=== PATIENT | female | born 1995 | race American Indian/Alaskan Native ===

== ENCOUNTER 2016-08-30 09:10 | Emergency (ER) | payer OTHER ==
[2016-08-30 10:19] LABS: Bilirubin,Urine NEG (Negative); Blood,Urine NEG (Negative); Ketones,Urine NEG (Negative); Leukocyte Esterase,Urine LG (Negative); Mucus,Urine FEW /HPF; Nitrite,Urine NEG (Negative); Protein,Urine <15 mg/dL mg/dL (Negative); Urobilinogen,Urine < 2.0 mg/dL (<2.0)
[2016-08-30 10:29] LABS: Basophils % (Auto) 0.8 % (0.0-1.8); Eosinophils % (Auto) 1.8 % (0.0-4.3); Hematocrit 40.1 % (30.3-42.9); Mean Corpuscular HGB Conc 32 % (30-34); Mean Corpuscular Hemoglobin 30 pg (28-32); Mean Corpuscular Volume 91 fl (79-97); Platelet Count 227 K/mm3 (140-440); Red Blood Count 4.39 M/mm3 (3.65-5.03); White Blood Count 4.8 K/mm3 (4.5-11.0)
[2016-08-30 10:48] LABS: Alanine Aminotransferase 9 units/L (7-56); Albumin 4.1 g/dL (3.9-5); Albumin/Globulin Ratio 1.4 %; Alkaline Phosphatase 90 units/L (35-129); Anion Gap 17 mmol/L; BUN/Creatinine Ratio 11.66; Bilirubin,Total 0.6 mg/dL (0.1-1.2); Blood Urea Nitrogen 7 mg/dL (7-17); Calcium 8.8 mg/dL (8.4-10.2); Carbon Dioxide 26 mmol/L (22-30); Chloride 100.7 mmol/L (98-107); Glucose 88 mg/dL (65-100); Lipase 28 units/L (13-60); Potassium 4.7 mmol/L (3.6-5.0); Sodium 139 mmol/L (137-145)
--- NOTE | 2016-08-30 14:28 | Emergency Department Report ---
ED Abdominal Pain HPI - General Chief Complaint: Abdominal Pain Stated Complaint: LOWER ABD PAIN/LT EYE REDNESS W/SWELLING Time Seen by Provider: 08/30/16 14:14 Source: patient Mode of arrival: Ambulatory Limitations: No Limitations - History of Present Illness Initial Comments: Pt reports lower abdominal pain x 5 days. Reports she vomited last night. No fevers. Reports discharge but just had pelvic exam last week for same, so declines today. Also reports possible pink eye, exposed to same. No contact use. MD Complaint: abdominal pain -: Gradual, days(s) (5) Location: suprapubic Radiation: none Migration to: no migration Severity: mild Quality: aching Consistency: constant Improves With: nothing Worsens With: nothing Associated Symptoms: nausea, vomiting - Related Data Previous Rx's Medication Instructions Recorded Last Taken Type Doxycycline [Vibramycin CAP] 100 mg PO Q12H #14 capsule 06/03/14 Unknown Rx HYDROcodone/APAP 5-325 [[place] 1 each PO Q6HR PRN #10 tablet 08/27/16 Unknown Rx 5-325 mg TAB] Ciprofloxacin HCl [Ciprofloxacin 500 mg PO Q12HR #10 tab 08/30/16 Unknown Rx TAB] Tobramycin 1 drop OS Q4-6H #1 bottle 08/30/16 Unknown Rx Allergies Allergy/AdvReac Type Severity Reaction Status Date / Time ketorolac tromethamine Allergy Unknown Verified 12/10/15 08:10 [From Toradol] Penicillins Allergy Unknown Verified 12/10/15 08:10 ED Review of Systems ROS: Stated complaint: LOWER ABD PAIN/LT EYE REDNESS W/SWELLING Other details as noted in HPI Comment: All other systems reviewed and negative Constitutional: denies: chills, fever Eyes: eye pain, eye discharge. denies: vision change ENT: denies: ear pain, throat pain Respiratory: denies: cough, shortness of breath, wheezing Cardiovascular: denies: chest pain, palpitations Endocrine: no symptoms reported Gastrointestinal: abdominal pain, nausea, vomiting. denies: diarrhea Genitourinary: denies: urgency, dysuria, discharge Musculoskeletal: denies: back pain, joint swelling, arthralgia Skin: denies: rash, lesions Neurological: denies: headache, weakness, paresthesias Psychiatric: denies: anxiety, depression Hematological/Lymphatic: denies: easy bleeding, easy bruising ED Past Medical Hx - Past Medical History Previous Medical History?: No - Surgical History Past Surgical History?: No - Social History Smoking Status: Never Smoker Substance Use Type: None - Medications Home Medications: Home Medications Medication Instructions Recorded Confirmed Last Taken Type Doxycycline [Vibramycin CAP] 100 mg PO Q12H #14 capsule 06/03/14 Unknown Rx HYDROcodone/APAP 5-325 [[place] 1 each PO Q6HR PRN #10 tablet 08/27/16 Unknown Rx 5-325 mg TAB] Ciprofloxacin HCl [Ciprofloxacin 500 mg PO Q12HR #10 tab 08/30/16 Unknown Rx TAB] Tobramycin 1 drop OS Q4-6H #1 bottle 08/30/16 Unknown Rx ED Physical Exam - General Limitations: No Limitations General appearance: alert, in no apparent distress - Head Head exam: Present: atraumatic, normocephalic - Eye Eye exam: Present: PERRL, EOMI, conjunctival injection (L). Absent: periorbital swelling, periorbital tenderness Pupils: Present: normal accommodation - ENT ENT exam: Present: normal orophraynx, mucous membranes moist - Neck Neck exam: Present: normal inspection - Respiratory Respiratory exam: Present: normal lung sounds bilaterally. Absent: respiratory distress - Cardiovascular Cardiovascular Exam: Present: regular rate, normal rhythm. Absent: systolic murmur, diastolic murmur, rubs, gallop - GI/Abdominal GI/Abdominal exam: Present: soft, tenderness (mild suprapubic only), normal bowel sounds. Absent: distended, guarding, rebound, rigid - Extremities Exam Extremities exam: Present: normal inspection - Back Exam Back exam: Present: normal inspection - Neurological Exam Neurological exam: Present: alert, oriented X3 - Psychiatric Psychiatric exam: Present: normal affect, normal mood - Skin Skin exam: Present: warm, dry, intact, normal color. Absent: rash ED Course Vital Signs 08/30/16 09:46 Temperature 98.8 F Pulse Rate 67 Respiratory 16 Rate Blood Pressure 121/80 O2 Sat by Pulse 100 Oximetry - Reevaluation(s) Reevaluation #1: 08/30/16 14:26 NAD, stable for d/c ED Medical Decision Making - Lab Data Result diagrams: 08/30/16 10:14 08/30/16 10:14 - Medical Decision Making Pt with UTI and conjunctivitis. Will treat. Follow up/return precautions given. Abdomen remains soft w/ mild suprapubic tenderness only. - Differential Diagnosis UTI, STI, conjunctivitis Critical care attestation.: If time is entered above; I have spent that time in minutes in the direct care of this critically ill patient, excluding procedure time. ED Disposition Clinical Impression: Acute UTI (urinary tract infection) Conjunctivitis, left eye Qualifiers: Conjunctivitis type: acute Acute conjunctivitis type: unspecified Qualified Code(s): H10.32 - Unspecified acute conjunctivitis, left eye Disposition: DISCHARGED TO HOME OR SELFCARE Is pt being admited?: No Condition: Good Instructions: Urinary Tract Infection in Women (ED), Conjunctivitis (ED), Abdominal Pain (ED) Prescriptions: Ciprofloxacin HCl [Ciprofloxacin TAB] 500 mg PO Q12HR #10 tab Tobramycin 1 drop OS Q4-6H #1 bottle Referrals: PRIMARY CARE, [Primary Care Provider] - 3-5 Days Time of Disposition: 14:29
[2016-08-30 14:39] VITALS: BP 124/68
== END 2016-08-30 14:38 | disposition home or self-care (01) ==
LOC: ED 09:10
DX: N39.0 Urinary tract infection, site not specified (principal); H10.32 Unspecified acute conjunctivitis, left eye
CPT/HCPCS: 36415; 80053; 81001; 81025; 83690; 85025; 99283